=== PATIENT | female | born 1995 | race African-American/Black ===

== ENCOUNTER 2021-03-21 13:07 | Emergency (ER) | payer OTHER ==
[~2021-03-21] VITALS: Ht 165.1 cm; Wt 54.4 kg
[2021-03-21] MEDS ORDERED: CEPHALEXIN500 MG PO (14:43)
[2021-03-21] MEDS ORDERED: ITRACONAZOLE100 MG PO (14:49)
[2021-03-21] MEDS ORDERED: NYSTATIN15 GM TOP (14:50)
== END 2021-03-21 14:57 | disposition home or self-care (01) ==
LOC: FSED 13:32
DX: B35.4 Tinea corporis (principal); L01.00 Impetigo, unspecified
CPT/HCPCS: 99283

== ENCOUNTER 2021-05-26 12:26 | Emergency (ER) | payer OTHER ==
[~2021-05-26] VITALS: Ht 165.1 cm; Wt 63.5 kg
[~2021-05-26 12:26] MED LIST: CEPHALEXIN500 MG PO; ITRACONAZOLE100 MG PO; NYSTATIN15 GM TOP
[2021-05-26] MEDS ORDERED: NYSTATIN15 GM TOP (13:18)
[2021-05-26] MEDS ORDERED: ITRACONAZOLE100 MG PO (13:18)
[2021-05-26] MEDS ORDERED: DIFLUCAN150 MG PO (17:20)
== END 2021-05-26 13:56 | disposition home or self-care (01) ==
LOC: FSED 12:44
DX: B35.4 Tinea corporis (principal)
CPT/HCPCS: 99282